=== PATIENT | female | born 1985 | race Caucasian/White ===

== ENCOUNTER → 2017-02-18 | Outpatient (REF) ==
[~2017-02-18] MED LIST: FERROUS SU325 MG/TAB PO; IBU800 M1 PO; PERCOCET 325 MG1 TA2 PO; PRENATAL
== END ==
LOC: WSOH 11:22
DX: Z02.89 Encounter for other administrative examinations (principal)

== ENCOUNTER → 2018-09-24 | Outpatient (CLI) | payer OTHER | LOC: COL.RAD 10:19 | DX: R59.0 Localized enlarged lymph nodes (principal); R10.2 Pelvic and perineal pain ==

== ENCOUNTER → 2019-08-07 | Outpatient (CLI) | payer OTHER | LOC: COL.RAD 08-03 11:30 | DX: R59.0 Localized enlarged lymph nodes (principal); Z80.0 Family history of malignant neoplasm of digestive organs | CPT/HCPCS: Q9967 ==

== ENCOUNTER 2020-06-14 17:21 | Emergency (ER) | payer OTHER ==
[~2020-06-14] VITALS: Ht 165.1 cm; Wt 72.7 kg
[2020-06-14 17:26] VITALS: TEMP 97.6
[2020-06-14 17:57] LABS: BASO # 0.1 (0.0-0.2); BASO % 0.4 % (0.0-2.0); EOS # 0.1 (0.0-0.7); EOS % 0.9 % (0-4.0); GRAN # 8.7 (1.4-6.5); GRAN % 77.5 % (42.2-75.2); HEMOGLOBIN 11.1 g/dl (12.5-16.0); LYMPH # 1.5 (1.2-3.4); LYMPH % 13.3 % (20.0-51.0); MEAN CELL VOLUME 90 fl (80.0-100.0); MEAN CORPUSCULAR HEMOGLOBIN 30 pg (27.0-31.0); MEAN CORPUSCULAR HGB CONC 34 g/dl (33.0-37.0); MEAN PLATELET VOLUME 9.5 fl (7.4-10.4); MONO # 0.8 (0.1-0.6); MONO % 7.5 % (1.7-9.3); PLATELET COUNT 230 K/mm3 (130-400); RED BLOOD COUNT 3.66 M/mm3 (4.10-5.30); REDCELL DISTRIBUTION WIDTH-CV 12.1 % (11.5-14.5)
[2020-06-14 18:01] LABS: HEMATOCRIT 33.1 % (37.0-47.0)
[2020-06-14 18:13] LABS: ALBUMIN 3.4 gm/dL (3.5-5.0); BILIRUBIN,TOTAL 0.3 mg/dL (0.0-1.0); CALCIUM 8.3 mg/dL (8.4-10.2); CREATININE, serum 0.58 (0.52-1.25); POTASSIUM 3.6 mmol/L (3.4-5.0); TOTAL PROTEIN 6.1 gm/dL (6.4-8.2)
[2020-06-14 19:58] LABS: COLLECTION METHOD CLEAN CATCH
[2020-06-14 20:07] LABS: PH 8 (5-8); SQUAMOUS EPITHELIAL 0-2 /hpf; URINE APPEARANCE Clear; URINE BACTERIA None Seen /hpf; URINE BILIRUBIN Negative (NEGATIVE); URINE BLOOD Negative (NEGATIVE); URINE COLOR Straw; URINE GLUCOSE Negative (NEGATIVE); URINE KETONE Trace (NEGATIVE); URINE LEUKOCYTE ESTERASE Negative (NEGATIVE); URINE NITRATE Negative (NEGATIVE); URINE PROTEIN(semi-quant) Negative (NEGATIVE); URINE RBC None Seen /hpf; URINE UROBILINOGEN Negative (NEGATIVE)
[2020-06-14 20:15] VITALS: BP 141/81; PULSE 95
== END 2020-06-14 20:28 | disposition home or self-care (01) ==
LOC: COL.ER 17:21
PROVIDERS: Family Medicine
DX: O26.893 Other specified pregnancy related conditions, third trimester (principal); R00.0 Tachycardia, unspecified; Z3A.31 31 weeks gestation of pregnancy; Z90.89 Acquired absence of other organs; Z79.1 Long term (current) use of non-steroidal anti-inflammatories (NSAID)
CPT/HCPCS: J7040; J7120

== ENCOUNTER 2020-08-14 00:50 | Inpatient (IN) | payer OTHER ==
[2020-08-14] VITALS (39 sets, daily range): BP systolic 95–152; BP diastolic 51–90; PULSE 74–108; TEMP 97.6–98.7
[~2020-08-14] VITALS: Ht 165.1 cm; Wt 78.2 kg
--- NOTE | 2020-08-14 00:50 | NUR ---
Ambulatory to unit for labor assessment, accompanied by spouse. Oriented to room, monitor, plan of care. Questions invited and answered. Pt reports "my water broke @ 11:45"
--- NOTE | 2020-08-14 02:10 | NUR ---
Report received from Nikhil VALADEZ. 0215: IV started by Donavan VALADEZ and labs obtained vis IV site. LR bolus infusing without difficulties. 0230: Consents signed and plan of care discussed. Pt unsure about pitocin at this time and questions answered. Pt wanting to get up and move around/walk/use birthing ball when able to. 0246: FHR strip reactive. Pt off monitors to ambulate freely in room and use birthing ball. More questions about pitocin answered at this time.
[2020-08-14 02:42] LABS: BASO # 0.1 (0.0-0.2); BASO % 0.5 % (0.0-2.0); EOS # 0.1 (0.0-0.7); EOS % 0.6 % (0-4.0); GRAN # 8.2 (1.4-6.5); GRAN % 75.6 % (42.2-75.2); HEMATOCRIT 37.5 % (37.0-47.0); HEMOGLOBIN 12.2 g/dl (12.5-16.0); LYMPH # 1.6 (1.2-3.4); LYMPH % 14.5 % (20.0-51.0); MEAN CELL VOLUME 92 fl (80.0-100.0); MEAN CORPUSCULAR HEMOGLOBIN 30 pg (27.0-31.0); MEAN CORPUSCULAR HGB CONC 33 g/dl (33.0-37.0); MEAN PLATELET VOLUME 10.3 fl (7.4-10.4); MONO # 0.9 (0.1-0.6); MONO % 8.4 % (1.7-9.3); PLATELET COUNT 206 K/mm3 (130-400); RED BLOOD COUNT 4.08 M/mm3 (4.10-5.30); REDCELL DISTRIBUTION WIDTH-CV 15.6 % (11.5-14.5)
--- NOTE | 2020-08-14 06:49 | NUR ---
REPOSITIONED TOCO IN ATTEMPT TO MONITOR CONTRACTIONS.
--- NOTE | 2020-08-14 07:15 | NUR ---
BELLY BAND REPLACED BY BELLY STRAPS IN ATTEMPT TO MONITOR CONTRACTIONS. PT REPORTS THEY ARE GETTING MORE INTENSE.
--- NOTE | 2020-08-14 09:15 | NUR ---
VON IN AT 0913. SVE . DISCUSSES PLAN OF CARE WITH PT. PT DOES NOT WANT TO HAVE PITOCIN STARTED AT THIS TIME. AGREES WITH PLAN OF CARE.
--- NOTE | 2020-08-14 09:45 | NUR ---
PT WANTING TO GET UP AND WALK. DISCUSSED WALKING IN THE ROOM AND IN THE HALLS AND THE NEED TO MONITOR BABY IN AN HOUR OR IF SHE WANTS TO GET BACK IN BED WILL PLACE BACK ON MONITOR.
--- NOTE | 2020-08-14 10:15 | NUR ---
PT SITTING AT BEDSIDE ON BIRTHING BALL. REPORTS CONTRACTIONS ARE MORE FREQUENT AND MORE INTENSE. DOPPLER FHT'S AT 145. WILL PLACE PT BACK ON MONITORS IN 30" TO OBTAIN MONITOR STRIP.
--- NOTE | 2020-08-14 12:15 | NUR ---
PT REQUESTING EPIDURAL. EARL LOUIS, NOTIFIED AT [address] JOSÉ MIGUEL COOLEY
--- NOTE | 2020-08-14 13:00 | NUR ---
EARL LOUIS, HERE AT 1238 FOR EPIDURAL PLACEMENT. PT SITTING UP. TEST DOSE AT 1242 WITH NO ABNORMAL SYMPTOMS OBSERVED OR REPORTED.
--- NOTE | 2020-08-14 13:00 | NUR ---
PT POSITIONED LEFT LATERAL LEFT SIDE STILL HAVING SOME PAIN.
--- NOTE | 2020-08-14 13:45 | NUR ---
2021-CALLED DR LONGORIA WITH SVE UPDATE.
--- NOTE | 2020-08-14 15:15 | NUR ---
SVE /0. PT NOT FEELING ANY PRESSURE AT THIS TIME. PHONED DR LONGORIA AT 1514 WITH SVE UPDATE
--- NOTE | 2020-08-14 15:45 | NUR ---
STRAIGHT CATH WITH 200CC URINE RETURNED. SVE UNCHANGED. HEAD DOES NOT COME DOWN FIRMLY ON CERVIX WITH CONTRACTIONS. DISCUSSED STARTING TO PITOCIN TO HELP HEAD ENGAGE MORE ON CERVIX AND PT AGREES-STATES SHE HAD BEEN WONDERING ABOUT THAT. PHONED DR LONGORIA AT 1543 AND HE AGREES TO START PITOCIN-STARTED AT 2MU AT 1545.
--- NOTE | 2020-08-14 16:30 | NUR ---
PT FEELING MORE PRESSURE. SVE WITH COMPLETE DILATION/+2 STATION. TRIAL OF PUSHING WITH GOOD MOVEMENT OF HEAD. DR LONGORIA CALLED AT 1630 TO COME FOR DELIVERY.
--- NOTE | 2020-08-14 16:45 | NUR ---
DR LONGORIA HERE AT 1645. PT PREPPED AND POSITIONED FOR DELIVERY. FHT'S WITH AUDIBLE DECELS TO THE 70-90'S RIGHT AFTER PUSHING WITH CONTRACTIONS. OF MALE AT 1652. WITH VIGOROUS CRY AND TO MOTHER'S CHEST. PITOCIN STOPPED AFTER DELIVERY OF .
--- NOTE | 2020-08-14 17:05 | NUR ---
DR LONGORIA AT BEDSIDE AFTER DELIVERY. SPONTANEOUS DELIVERY OF PLACENTA AT 1658. FUNDAL MASSAGE AFTER DELIVERY OF PLACENTA AND PITOCIN STARTED AT 333ML/HR AFTER DELIVERY OF PLACENTA. FUNDUS FIRMS WITH MASSAGE WITH SMALL AMOUNT OF BLEEDING. DR LONGORIA REPAIRING PERIURETHRAL AND 2ND DEGREE MIDLINE LACERATIONS.
[2020-08-14] MEDS ORDERED: MOTRIN 800800 MG/TAB PO (19:33)
[2020-08-15 00:30] VITALS: BP 101/56; PULSE 91; TEMP 98.3
[2020-08-15 08:42] VITALS: BP 115/69; PULSE 84; TEMP 97.5
--- NOTE | 2020-08-15 09:19 | NUR ---
Initial visit; Parents thanked [employer] P[employer] for offering congratulations and God's blessings for the of their son. [employer] thanked family for choosing [facility].
[2020-08-15 13:00] VITALS: BP 114/59; PULSE 63; TEMP 97.8
[2020-08-15 17:18] VITALS: BP 124/76; PULSE 87; TEMP 97.6
== END 2020-08-15 18:00 | disposition home or self-care (01) | DRG 807 ==
LOC: LDRO 00:50 → OB 00:51 → LDR 00:51 → OB 19:24
PROVIDERS: Student in an Organized Health Care Education/Training Program; ADMIT Obstetrics & Gynecology
PROC: 10E0XZZ Delivery of Products of Conception, External Approach (ICD-10-PCS; principal; 2020-08-14)
PROC: 0KQM0ZZ Repair Perineum Muscle, Open Approach (ICD-10-PCS; 2020-08-14)
PROC: 0UQMXZZ Repair Vulva, External Approach (ICD-10-PCS; 2020-08-14)
DX: O48.0 Post-term pregnancy (principal); Z37.0 Single live birth; O70.1 Second degree perineal laceration during delivery; O71.82 Other specified trauma to perineum and vulva; Z3A.40 40 weeks gestation of pregnancy
CPT/HCPCS: J2590; J2791; J7120